=== PATIENT | male | born 1945 ===

== ENCOUNTER → 2016-12-11 | Outpatient (CLI) | payer OTHER ==
[2016-12-11 13:32] LABS: ESTIMATED AVERAGE GLUCOSE 171 mg/dl; HA1C FLAG Normal (Normal)
[2016-12-11 13:45] LABS: ALT/SGPT 128 U/L (12-78); BLOOD UREA NITROGEN 17 mg/dl (7-18); BUN/CREATININE RATIO 25.8 (10-20); CALCIUM 9.5 mg/dl (8.5-10.1); CARBON DIOXIDE 24 mmol/L (21-32); CHLORIDE 102 mmol/L (98-107); CHOLESTEROL 171 mg/dl (0-200); CREATININE 0.67 mg/dl (0.60-1.40); GLUCOSE 202 mg/dl (70-99); POTASSIUM 4.3 mmol/L (3.5-5.1); SODIUM 139 mmol/L (136-145)
[2016-12-11 13:49] LABS: ALB/GLOB RATIO 1.2 (0.9-2); ALKALINE PHOSPHATASE 106 U/L (45-117); AST/SGOT 46 U/L (15-37); CHOLESTEROL/HDL RATIO 4.9; HDL CHOLESTEROL 35 mg/dl; LDL CHOLESTEROL CALCULATED 99 mg/dl; PROSTATE SPECIFIC ANTIGEN < 0.010 ng/ml (0.000-4.000); TRIGLYCERIDES 183 mg/dl (0-150); VERY LOW DENSITY LIPOPROT CALC 37 mg/dl
== END | disposition home or self-care (01) ==
LOC: C.LABMFLN 07:39
PROVIDERS: ATTEND Family Medicine
DX: E11.9 Type 2 diabetes mellitus without complications (principal); E78.00 Pure hypercholesterolemia, unspecified; R74.0 Nonspecific elevation of levels of transaminase and lactic acid dehydrogenase [LDH]; C61 Malignant neoplasm of prostate

== ENCOUNTER → 2017-06-19 | Outpatient (CLI) | payer OTHER ==
[2017-06-19 13:31] LABS: ESTIMATED AVERAGE GLUCOSE 146 mg/dl; HA1C FLAG Normal (Normal)
[2017-06-19 13:36] LABS: ALT/SGPT 98 U/L (12-78); AST/SGOT 42 U/L (15-37); BLOOD UREA NITROGEN 21 mg/dl (7-18); BUN/CREATININE RATIO 27.7 (10-20); CALCIUM 9.7 mg/dl (8.5-10.1); CARBON DIOXIDE 28 mmol/L (21-32); CHLORIDE 106 mmol/L (98-107); CHOLESTEROL 189 mg/dl (0-200); CREATININE 0.75 mg/dl (0.60-1.40); GLUCOSE 130 mg/dl (70-99); POTASSIUM 4.2 mmol/L (3.5-5.1); SODIUM 140 mmol/L (136-145)
[2017-06-19 13:41] LABS: ALB/GLOB RATIO 1.2 (0.9-2); ALKALINE PHOSPHATASE 68 U/L (45-117); CHOLESTEROL/HDL RATIO 5.3; HDL CHOLESTEROL 36 mg/dl; LDL CHOLESTEROL CALCULATED 124 mg/dl; PROSTATE SPECIFIC ANTIGEN < 0.010 ng/ml (0.000-4.000); TRIGLYCERIDES 147 mg/dl (0-150); VERY LOW DENSITY LIPOPROT CALC 29 mg/dl
[2017-06-19 13:55] LABS: RATIO 5.5 mcg/mg (0-30.0)
== END | disposition home or self-care (01) ==
LOC: C.LABMFLN 08:07
PROVIDERS: ATTEND Family Medicine
DX: E11.9 Type 2 diabetes mellitus without complications (principal); E78.00 Pure hypercholesterolemia, unspecified; I10 Essential (primary) hypertension; R74.0 Nonspecific elevation of levels of transaminase and lactic acid dehydrogenase [LDH]; C61 Malignant neoplasm of prostate

== ENCOUNTER → 2017-12-28 | Outpatient (CLI) | payer OTHER ==
[2017-12-28 13:22] LABS: HEMOGLOBIN A1C 8.4 % (4.5-5.6)
[2017-12-28 13:51] LABS: ALBUMIN 4.1 gm/dl (3.4-5.0); ALT/SGPT 135 U/L (12-78); BLOOD UREA NITROGEN 14 mg/dl (7-18); CALCIUM 9.6 mg/dl (8.5-10.1); CARBON DIOXIDE 25 mmol/L (21-32); CHOLESTEROL 204 mg/dl (0-200); CREATININE 0.84 mg/dl (0.60-1.40); GLUCOSE 195 mg/dl (70-99); LDL CHOLESTEROL CALCULATED 125 mg/dl; POTASSIUM 3.9 mmol/L (3.5-5.1); SODIUM 134 mmol/L (136-145)
[2017-12-28 14:02] LABS: ALKALINE PHOSPHATASE 76 U/L (45-117); AST/SGOT 88 U/L (15-37); TOTAL PROTEIN 7.9 gm/dl (6.4-8.2)
== END | disposition home or self-care (01) ==
LOC: C.LABMFLN 08:26
PROVIDERS: ATTEND Family Medicine
DX: E11.9 Type 2 diabetes mellitus without complications (principal); E78.00 Pure hypercholesterolemia, unspecified; R74.0 Nonspecific elevation of levels of transaminase and lactic acid dehydrogenase [LDH]; I10 Essential (primary) hypertension; R26.81 Unsteadiness on feet; G62.9 Polyneuropathy, unspecified

== ENCOUNTER → 2018-07-03 | Outpatient (CLI) | payer OTHER ==
--- NOTE | 2018-07-03 14:46 | DIAGNOSTIC IMAGING REPORT ---
GI SERIES W/AIR ROUTINE CLINICAL HISTORY: 72 years-old Male presenting with R68.81 Early [id number] Right upper quadrant abdominal tender. TECHNIQUE: A standard air contrast upper GI series was performed. Spot images of the esophagus and stomach were obtained in multiple obliquities both upright and prone. COMPARISON: Ultrasound performed the same day. FINDINGS: The patient swallowed barium without difficulty. The esophagus is structurally normal without evidence of intrinsic or extrinsic mass. The esophageal mucosal pattern is normal. No gastroesophageal reflux was elicited by having the patient perform the Valsalva maneuver. The gastroesophageal junction distends normally. The stomach is normal in configuration and demonstrates normal distensibility. No mass or ulceration is identified. There was no evidence of gastritis. The duodenal bulb and sweep are unremarkable. However, suggestion of thickening of the folds in the jejunum, nonspecific. Fluoroscopy dosage (mGy): Not available. Fluoroscopy time: 2.3 minutes. Number or time of fluoroscopic spot images: 21. IMPRESSION: 1. Normal esophagus and stomach. Questionable thickening of jejunal folds, nonspecific. 2. If there is clinical concern, consider contrast-enhanced CT of abdomen and pelvis. Electronically signed by: Santiago Bermudez M.D. 07/03/2018 2:44 PM Dictated Date/Time: 07/03/2018 2:43 PM
[2018-07-03 14:48] LABS: BASO % 0.3 %; BASO ABS # 0.03 K/uL (0-0.2); EOS % 0.3 %; EOS ABS # 0.03 K/uL (0-0.5); HEMATOCRIT 36.2 % (42-52); HEMOGLOBIN 12.4 g/dL (14.0-18.0); IG# 0.02 K/uL (0.00-0.02); LYMPH % 26.3 %; LYMPH ABS # 2.47 K/uL (1.2-3.4); MEAN CORPUSCULAR HEMOGLOBIN 32.5 pg (25-34); MEAN CORPUSCULAR HGB CONC 34.3 g/dl (32-36); MONO ABS # 1.41 K/uL (0.11-0.59); NEUT % 57.9 %; NEUT ABS # 5.44 K/uL (1.4-6.5); PLATELET COUNT 366 K/uL (130-400); RED CELL DISTRIBUTION WIDTH CV 12.1 % (11.5-14.5); RED CELL DISTRIBUTION WIDTH SD 41.8 fL (36.4-46.3)
--- NOTE | 2018-07-03 14:50 | DIAGNOSTIC IMAGING REPORT ---
ULTRASOUND RIGHT UPPER QUADRANT ABDOMEN CLINICAL HISTORY: Early satiety. Right upper quadrant abdominal pain. COMPARISON STUDY: No priors. TECHNIQUE: Real-time, grayscale, and color flow sonography of the right upper quadrant of the abdomen was performed. Images are reviewed in the transverse and longitudinal planes. FINDINGS: Liver: The liver is enlarged and demonstrates heterogeneously increased echotexture consistent with hepatic steatosis. Note that this degrades acoustic penetration of the liver. Fatty sparing is noted adjacent to gallbladder fossa. There is no intrahepatic biliary ductal dilatation. The main portal vein is patent. Gallbladder: The gallbladder is distended and contains biliary sludge. No shadowing gallstones are identified. There is no gallbladder wall thickening or pericholecystic fluid. A sonographic Jerome's sign is reportedly absent. The common bile duct measures up to 0.5 cm in diameter. Pancreas: Not well visualized due to overlying bowel gas. Right kidney: Survey images of the right kidney demonstrate normal size and echotexture. There is no hydronephrosis. A 2.8 cm cyst is noted in the interpolar right kidney. Ascites: None. IMPRESSION: 1. Biliary sludge is noted. There are no shadowing gallstones identified and there is no sonographic evidence of acute cholecystitis. 2. Hepatomegaly and hepatic steatosis. Electronically signed by: Cole Neff M.D. 07/03/2018 2:52 PM Dictated Date/Time: 07/03/2018 2:47 PM
[2018-07-03 15:32] LABS: ALBUMIN 3.3 gm/dl (3.4-5.0); ALKALINE PHOSPHATASE 77 U/L (45-117); ALT/SGPT 53 U/L (12-78); AST/SGOT 35 U/L (15-37); BLOOD UREA NITROGEN 23 mg/dl (7-18); CALCIUM 9.5 mg/dl (8.5-10.1); CARBON DIOXIDE 25 mmol/L (21-32); CREATININE 0.96 mg/dl (0.60-1.40); GLUCOSE 90 mg/dl (70-99); LIPASE 198 U/L (73-393); POTASSIUM 3.6 mmol/L (3.5-5.1); SODIUM 132 mmol/L (136-145)
== END | disposition home or self-care (01) ==
LOC: C.ULTR 12:52
PROVIDERS: ATTEND Family Medicine
DX: K83.9 Disease of biliary tract, unspecified (principal); K76.0 Fatty (change of) liver, not elsewhere classified; R68.81 Early satiety; R11.2 Nausea with vomiting, unspecified; R82.90 Unspecified abnormal findings in urine

== ENCOUNTER 2022-03-30 08:36 | Inpatient (IN) ==
--- NOTE | 2022-02-27 09:28 | PAT Medication Instructions ---
Medication Instructions Date of Service February 27, 2022 Home Medications Medication Instructions Recorded nitroglycerin 0.4 mg sublingual 0.4 mg SUBLINGUAL Q5M PRN #25 tab 09/07/20 tablet blood-glucose meter (OneTouch #1 ea 09/17/20 Verio Meter) glimepiride 4 mg tablet 4 mg PO BID #180 tab 03/30/21 blood sugar diagnostic (OneTouch #200 ea 07/04/21 Verio test strips) Novafine Plus 0.23/0.25x4 mm #200 ea 08/16/21 lancets 30 gauge (OneTouch Delica #100 ea 08/25/21 Lancets) omeprazole 40 mg capsule,delayed 40 mg PO QAM #90 cap 09/20/21 release metformin 1,000 mg tablet 1,000 mg PO BID #180 tab 01/09/22 insulin NPH isoph U-100 human 100 See Rx Instructions SUBCUT DAILY 01/11/22 unit/mL (3 mL) subcutaneous pen #120 ml (Novolin N Flexpen) aspirin 81 mg tablet,delayed release 81 mg PO QAM polyethylene glycol 3350 17 gram/dose oral powder (Miralax) 17 gm PO DAILY PRN nitroglycerin 0.4 mg sublingual tablet 0.4 mg SUBLINGUAL Q5M PRN glimepiride 4 mg tablet 4 mg PO BID omeprazole 40 mg capsule,delayed release 40 mg PO QAM metformin 1,000 mg tablet 1,000 mg PO BID insulin NPH isoph U-100 human 100 unit/mL (3 mL) subcutaneous pen (Novolin N Flexpen) See Rx Instructions SUBCUT BID losartan 100 mg tablet 100 mg PO QAM Continue as directed nitroglycerin 0.4 mg sublingual tablet 0.4 mg SUBLINGUAL Q5M PRN (if needed) ASK your prescriber and surgeon aspirin 81 mg tablet,delayed release 81 mg PO QAM DO NOT take the morning of surgery polyethylene glycol 3350 17 gram/dose oral powder (Miralax) 17 gm PO DAILY PRN glimepiride 4 mg tablet 4 mg PO BID metformin 1,000 mg tablet 1,000 mg PO BID insulin NPH isoph U-100 human 100 unit/mL (3 mL) subcutaneous pen (Novolin N Flexpen) See Rx Instructions SUBCUT BID losartan 100 mg tablet 100 mg PO QAM Take morning of surgery With a small sip of water, OTHERWISE NOTHING TO EAT OR DRINK AFTER MIDNIGHT: omeprazole 40 mg capsule,delayed release 40 mg PO QAM Take evening before surgery polyethylene glycol 3350 17 gram/dose oral powder (Miralax) 17 gm PO DAILY PRN (if needed) glimepiride 4 mg tablet 4 mg PO BID metformin 1,000 mg tablet 1,000 mg PO BID insulin NPH isoph U-100 human 100 unit/mL (3 mL) subcutaneous pen (Novolin N Flexpen) See Rx Instructions SUBCUT BID Other Notes If you have any questions please call us at [phone] or [phone] or [phone] or [phone]
--- NOTE | 2022-02-28 09:53 | Anesthesiology Consultation ---
Date of Service February 28, 2022 Assessment & Plan (1) Encounter for pre-operative examination: Chart Review Chart Review: Acceptable Risk for Surgery (pending surgeon ordered PCP clearance scheduled 02/28/22 and preop Covid testing results ) and Patient seen in Pre Admission Testing - Awaiting PCP clearance scheduled 02/28/22 - Check BSG AM DOS Per PAT appt on 02/28/22, patient denies any recent travel or large group activ ities. No known Covid positive exposures or Covid related symptoms. No known Covid infection in the past 90 days. Pt is vaccinated for Covid. Preop Covid testing scheduled 03/28/22 = will await results. Educated on importance of self quarantining, social distancing and wearing mask in public for the patient one week prior to surgery and after Covid testing done Teaching & Discussion Pre-Anesthesia Teaching/Discussion Notes: Instructed NPO after midnight before surgery,except medications with 15 cc of water. Medication instructions provided according to the PAT guidelines. History Surgery Operation Date: 03/30/22 11:00 Proposed Procedures p Left Reversed Total Shoulder Arthroplasty - Martín Mclaughlin MD Height/Weight Height: 5 ft 10 in Weight: 90.2 kg Allergies Allergy/AdvReac Type Severity Reaction Status Date / Time codeine Allergy Intermediate Rash, Verified 02/28/22 13:34 nervous and sweaty Rlpwonl-EKW-ArM Reductase Allergy Intermediate Muscle Pain Verified 02/28/22 13:34 Inhibitor [Dttnove-Njs-Yju Reductase Inhibitor] Medications Home Medications Medication Instructions Recorded Confirmed Last Taken aspirin 81 mg tablet,delayed 81 mg PO QAM 04/18/19 02/28/22 05/25/21 release polyethylene glycol 3350 17 17 gm PO DAILY PRN 12/18/19 02/28/22 05/25/21 gram/dose oral powder (Miralax) nitroglycerin 0.4 mg sublingual 0.4 mg SUBLINGUAL Q5M PRN #25 tab 09/07/20 02/28/22 Unknown tablet blood-glucose meter (OneTouch #1 ea 09/17/20 02/28/22 Unknown Verio Meter) glimepiride 4 mg tablet 4 mg PO BID #180 tab 03/30/21 02/28/22 05/25/21 blood sugar diagnostic (OneTouch #200 ea 07/04/21 02/28/22 Unknown Verio test strips) Novafine Plus 0.23/0.25x4 mm #200 ea 08/16/21 02/28/22 Unknown lancets 30 gauge (OneTouch Delica #100 ea 08/25/21 02/28/22 Unknown Lancets) omeprazole 40 mg capsule,delayed 40 mg PO QAM #90 cap 09/20/21 02/28/22 Unknown release metformin 1,000 mg tablet 1,000 mg PO BID #180 tab 01/09/22 02/28/22 Unknown insulin NPH isoph U-100 human 100 See Rx Instructions SUBCUT DAILY 01/11/22 02/28/22 Unknown unit/mL (3 mL) subcutaneous pen #120 ml (Novolin N Flexpen) losartan 100 mg tablet 100 mg PO QAM 02/23/22 02/28/22 Unknown Past Medical History Medical History (Updated 02/28/22 @ 15:24 by Tere Herr PA-C) Benign essential hypertension BPPV (benign paroxysmal positional vertigo) Ongoing x years- most recently improved with slow transitions from laying to sitting to standing Hx of syncope in the past - specifics of work up unknown per patient - follows currently on with PCP- no issues recently DM type 2 (diabetes mellitus, type 2) Fasting glucose usually 110s Elevated liver function tests Chronic x years PCP monitoring No hx of hepaitits or cirrhosis AST 106 and ALT 137 in Dec 2021 GERD (gastroesophageal reflux disease) Controlled and stable History of prostate cancer Around 2014 S/p prostatectomy - no chemo or XRT Hypercholesteremia Neuropathy Initially in feet- has seemed to improved Exercise / Class Metabolic Activity II 4-5 Yardwork/Stairs/Walk up hill (one flight of stairs - no chest pain or SOB ) Past Family History Family History Father Family history of diabetes mellitus Hypertension Mother Liver cancer Other No family history of adverse response to anesthesia Past Surgical History Surgical History History of cardiac cath [facility] - [facility] [place] - CP - no stents/angioplasty History of cataract surgery RT/LEFT History of colonoscopy History of esophagogastroduodenoscopy (EGD) History of radical prostatectomy History of tooth extraction History of vitrectomy RT Past Anesthesia History No Hx of Anesthesia Complications and No Family Hx of Anesthesia Complications History of PONV No Hx of PONV and No Hx of Motion Sickness Social History Smoking Status: Never smoker Do You Dip or Chew Tobacco: No Hx Alcohol Use: No Hx Substance Use: No substance use type: does not use Review of Systems Patient denies chest pain, shortness of breath, dyspnea on exertion, cough, wheezing, palpitations. No hx of seizures, stroke, MD, apnea/snoring. No hx of blood clots or blood transfusions Physical Exam Vital Signs VITALS BP 150/74 P 76 TEMP 97.5 SP02 96% RESP 16 Constitutional no acute distress ENMT Mouth: no TMJ clicking Thyromental Distance: < 3.5 Finger Breadths (3.0) Mallampati Class: III Missing molars Neck + limited neck extension (significant ) Respiratory normal respiratory effort; no respiratory distress Auscultation: lungs clear to auscultation bilaterally; no wheezes Cardiovascular Rate/Rhythm: regular rate and regular rhythm Heart Sounds: no murmur Vessels: no carotid bruit Musculoskeletal Spine: no pain with cervical ROM Extremities: extremities normal to inspection Psychiatric Orientation: alert Lab Results Anesthesia Preop Results Results Anesthesia Widget: WBC 7.04 K/uL (4.8-10.8) 02/28/22 Hgb 14.1 g/dL (14.0-18.0) 02/28/22 Hct 41.3 % (42-52) L 02/28/22 Plt 214 K/uL (130-400) 02/28/22 Na 138 mmol/L (136-145) 02/28/22 K 4.2 mmol/L (3.5-5.1) 02/28/22 Cl 104 mmol/L (98-107) 02/28/22 CO2 25 mmol/L (21-32) 02/28/22 BUN 17 mg/dl (6-23) 02/28/22 Creat 0.81 mg/dl (0.6-1.4) 02/28/22 Glucose Level 129 mg/dl (70-99(Fasting)) H 02/28/22 PT 11.7 Seconds (9.0-12.0) 02/28/22 PTT 26.9 Seconds (21.0-31.0) 02/28/22 INR 1.1 (0.9-1.1) 02/28/22 HA1c 7.2 % (4.5-5.6) H 02/28/22 Urine Color Yellow 02/28/22 Urine Appearance Clear (Clear) 02/28/22 Urine pH 5.5 (4.5-7.5) 02/28/22 Urine Specific Rozel 1.019 (1.000-1.030) 02/28/22 Urine Protein Negative (Negative) 02/28/22 Urine Glucose (UA) Negative (Negative) 02/28/22 Urine Ketones Negative (Negative) 02/28/22 Urine Blood Negative (Negative) 02/28/22 Urine Nitrite Negative (Negative) 02/28/22 Urine Bilirubin Negative (Negative) 02/28/22 Urine Urobilinogen Negative (Negative) 02/28/22 Urine Leukocyte Esterase Negative (Negative) 02/28/22 Blood Type O Positive 02/28/22 Antibody Screen NEGATIVE 02/28/22 Testing Electrocardiogram Date:08/18/21 Findings:+ NSR @ (78bpm) Minimal voltage criteria for LVH, may be normal variant Chest X-Ray Date: 02/28/22 Findings: + NAD Stress Test Date:09/20/20 Type:exercise (Echo) Resting EF:60-65% Resting LV Function:normal Resting RWMA:+ none Valvular Disease:no significant valvular disease Negative stress echo and exercise EKG for ischemia at 100% MPHR. 7 METS achieved. Appropriate BP response. No arrhythmia. Study terminated due to fatigue/dyspnea. No chest pain reported. Poor exercise tolerance. Mild concentric LVH. Aortic root mildly dilated. Type I diastolic dysfunction. Mild MD.
--- NOTE | 2022-02-28 10:05 | PAT Medication Instructions ---
Medication Instructions Date of Service February 28, 2022 Home Medications Medication Instructions Recorded nitroglycerin 0.4 mg sublingual 0.4 mg SUBLINGUAL Q5M PRN #25 tab 09/07/20 [facility] Verio Meter) glimepiride 4 mg tablet 4 mg PO BID #180 tab 03/30/21 blood sugar diagnostic ([facility] 07[facility]04/21 Verio test strips) Novafine Plus 0.23/0.25x4 mm #200 ea 08/16/21 lancets 30 gauge ([facility] ea 08/25/21 Lancets) omeprazole 40 mg capsule,delayed 40 mg PO QAM #90 cap 09/20/21 release metformin 1,000 mg tablet 1,000 mg PO BID #180 tab 01/09/22 insulin NPH isoph U-100 human 100 See Rx Instructions SUBCUT DAILY 01/11/22 unit/mL (3 mL) subcutaneous pen #120 ml (Novolin N Flexpen) aspirin 81 mg tablet,delayed release 81 mg PO QAM polyethylene glycol 3350 17 gram/dose oral powder (Miralax) 17 gm PO DAILY PRN nitroglycerin 0.4 mg sublingual tablet 0.4 mg SUBLINGUAL Q5M PRN glimepiride 4 mg tablet 4 mg PO BID omeprazole 40 mg capsule,delayed release 40 mg PO QAM metformin 1,000 mg tablet 1,000 mg PO BID insulin NPH isoph U-100 human 100 unit/mL (3 mL) subcutaneous pen (Novolin N Flexpen) See Rx Instructions SUBCUT DAILY losartan 100 mg tablet 100 mg PO QAM Continue as directed aspirin 81 mg tablet,delayed release 81 mg PO QAM (unless surgeon directed otherwise) nitroglycerin 0.4 mg sublingual tablet 0.4 mg SUBLINGUAL Q5M PRN (if needed) DO NOT take the morning of surgery polyethylene glycol 3350 17 gram/dose oral powder (Miralax) 17 gm PO DAILY PRN glimepiride 4 mg tablet 4 mg PO BID metformin 1,000 mg tablet 1,000 mg PO BID losartan 100 mg tablet 100 mg PO QAM Take morning of surgery With a small sip of water, OTHERWISE NOTHING TO EAT OR DRINK AFTER MIDNIGHT: omeprazole 40 mg capsule,delayed release 40 mg PO QAM Take evening before surgery polyethylene glycol 3350 17 gram/dose oral powder (Miralax) 17 gm PO DAILY PRN (if needed) glimepiride 4 mg tablet 4 mg PO BID metformin 1,000 mg tablet 1,000 mg PO BID insulin NPH isoph U-100 human 100 unit/mL (3 mL) subcutaneous pen (Novolin N Flexpen) (take usual 62 units) Insulin Dependent Diabetic Patients * Test your blood sugar the morning of surgery * If Blood Sugar is GREATER THAN 150, take HALF of your regular dose of: insulin NPH isoph U-100 human 100 unit/mL (3 mL) subcutaneous pen (Novolin N Flexpen) (take 35 units) * If Blood Sugar is LESS THAN 150, DO NOT TAKE ANY: insulin NPH isoph U-100 human 100 unit/mL (3 mL) subcutaneous pen (Novolin N Flexpen) Other Notes If you have any questions please call us at [phone] or [phone] or [phone] or [phone]
--- NOTE | 2022-03-28 16:28 | History & Physical Report ---
Date of Service March 28, 2022 Assessment & Plan (1) Rotator cuff arthropathy of left shoulder: Plan: Treatment options discussed with the patient. He has failed conservative measures. He would like to proceed with surgical intervention. Risks, benefits and alternatives to surgery including but not limited to infection, DVT, pain, stiffness, need for revision surgery, damage to blood vessels, damage to nerves, PE, , were discussed with the patient and they wish to proceed. Plan on left reverse total shoulder arthroplasty scheduled for [facility] with Dr. Mclaughlin on 03/30/22. All questions answered. Patient will follow up post op. History of Present Illness Chief Complaint: Left shoulder pain Primary Care Provider: Cole Barraza MD 76 year old male with PMHx significant for HTN, GERD, Prostate Ca, DM2 who presents with ongoing left shoulder pain. Patient has pain interfering with his daily activities. He has failed conservative measures. He would like to proceed with surgical intervention. Patient denies headaches, sweats, fevers, chills, double vision, blurred vision, cough, sore throat, dysphagia, chest pain, sob, wheezing, n/v/d/c, numbness, tingling, fatigue, urinary symptoms, mood disorders. ROS positive for left shoulder pain and stiffness. Allergies Allergy/AdvReac Type Severity Reaction Status Date / Time codeine Allergy Intermediate Rash, Verified 02/28/22 13:34 nervous and sweaty Zugahuz-KOM-XrI Reductase Allergy Intermediate Muscle Pain Verified 02/28/22 13:34 Inhibitor [Vleakrx-Add-Cim Reductase Inhibitor] Home Medications Medication Instructions Recorded Confirmed Type aspirin 81 mg tablet,delayed 81 mg PO QAM 04/18/19 02/28/22 History release polyethylene glycol 3350 17 17 gm PO DAILY PRN 12/18/19 02/28/22 History gram/dose oral powder (Miralax) nitroglycerin 0.4 mg sublingual 0.4 mg SUBLINGUAL Q5M PRN #25 tab 09/07/20 02/28/22 Rx tablet blood-glucose meter (OneTouch #1 ea 09/17/20 02/28/22 Rx Verio Meter) blood sugar diagnostic (OneTouch #200 ea 07/04/21 02/28/22 Rx Verio test strips) Novafine Plus 0.23/0.25x4 mm #200 ea 08/16/21 02/28/22 Rx lancets 30 gauge (OneTouch Delica #100 ea 08/25/21 02/28/22 Rx Lancets) omeprazole 40 mg capsule,delayed 40 mg PO QAM #90 cap 09/20/21 02/28/22 Rx release metformin 1,000 mg tablet 1,000 mg PO BID #180 tab 01/09/22 02/28/22 Rx insulin NPH isoph U-100 human 100 See Rx Instructions SUBCUT DAILY 01/11/22 02/28/22 Rx unit/mL (3 mL) subcutaneous pen #120 ml (Novolin N Flexpen) losartan 100 mg tablet 100 mg PO QAM 02/23/22 02/28/22 History glimepiride 4 mg tablet 4 mg PO BID #180 tab 03/06/22 Rx Past Med/Surg History Medical History (Updated 03/28/22 @ 16:25 by Milton Ron PA-C) Benign essential hypertension BPPV (benign paroxysmal positional vertigo) Ongoing x years- most recently improved with slow transitions from laying to sitting to standing Hx of syncope in the past - specifics of work up unknown per patient - follows currently on with PCP- no issues recently DM type 2 (diabetes mellitus, type 2) Fasting glucose usually 110s Elevated liver function tests Chronic x years PCP monitoring No hx of hepaitits or cirrhosis AST 106 and ALT 137 in Dec 2021 GERD (gastroesophageal reflux disease) Controlled and stable History of prostate cancer Around 2014 S/p prostatectomy - no chemo or XRT Hypercholesteremia Neuropathy Initially in feet- has seemed to improved Surgical History History of cardiac cath [facility] [place] - no stents/angioplasty History of cataract surgery RT/LEFT History of colonoscopy History of esophagogastroduodenoscopy (EGD) History of radical prostatectomy History of tooth extraction History of vitrectomy RT Family History Father Family history of diabetes mellitus Hypertension Mother Liver cancer Other No family history of adverse response to anesthesia Social History Smoking Status: Never smoker Second Hand Exposure: No; Hx Alcohol Use: No Hx Substance Use: No Preferred Language: Tunisian Communication Ability: Effective 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 Beliefs That Will Affect Care: None Current Living Situation: Spouse current occupational status: retired Feels Safe at Home: Yes Seatbelt Use: always Assistive Devices: Glasses Review of Systems All systems reviewed & are unremarkable except as noted in HPI & below Physical Exam Constitutional: well developed and well nourished; no acute distress Eyes: PERRL, conjunctivae normal, anicteric sclerae ENMT: external ear and nose normal, oropharynx normal Neck: trachea midline, no thyromegaly Respiratory: normal respiratory effort, lungs clear to auscultation Cardiovascular: RRR, no murmur, no edema Musculoskeletal: Left shoulder: Tenderness anterolateral acromion. Positive impingement signs, positive Cross body and O'demetria's. Painful impingement arc. Pain with resistive strength testing. FF to 170 degrees, abduction to 170 degrees, ER to 75 degrees. Skin: no rashes, warm and dry Neurologic: patellar DTR's 2+ bilat, sensation intact Psychiatric: A+Ox3, euthymic affect Results & Data ([facility]) Diagnostic Findings Left shoulder: X-rays of his left shoulder demonstrate that he has no fracture or dislocation. There is some mild proximal migration of the humerus that would be concerning for a rotator cuff tear. There are some degenerative changes in the greater tuberosity, which would be concerning for rotator cuff tendinopathy. He does have a type III acromion and hypertrophic AC joint that would cause subacromial impingement with advanced AC joint osteoarthritis. The glenohumeral joint is maintained at this point. MRI demonstrates massive rotator cuff tear with marked atrophy of the supraspinatus muscle belly with positive tension sign and retraction with tear over 5 cm. There is superior wear on the humeral head with articular thinning and some possible early acetabular rotation of the acromion.
[~2022-03-30 08:36] MED LIST: ACETAMINOPHEN 500 MG TAB PO SCH; BUPIVACAINE 0.5 % 5 MG/1 ML PF 10ML VIAL ONE; CeleBREX 200 MG CAP PO SCH; FAMOTIDINE 20 MG TAB PO SCH; GABAPENTIN 300 MG CAP PO SCH; LR 15ML/HR IV SCH; METOCLOPRAMIDE HCL 10 MG TABLET PO SCH; MIDAZOLAM HCL 1 MG/ML 2ML VIAL ONE; TRANEXAMIC ACID 1,000 MG **IV Intra-op IV SCH; TRANEXAMIC ACID 1,000 MG **IV Pre-op IV SCH; ceFAZolin 2000MG 2,000 MG/15 ML SYR IV SCH; fentaNYL citrate 100 MCG/2 ML VIAL ONE
--- NOTE | 2022-03-30 09:12 | History & Physical Bridge Note ---
Date of Service March 30, 2022 History & Physical Bridge Note I have examined the patient, reviewed the History & Physical and in the interval since the performance of the History & Physical I have noted the following changes of clinical significance: no changes noted
[2022-03-30] MEDS ORDERED: ePHEDrine sulfate 50 MG/ML AMP IV PRN (10:19)
[2022-03-30] MEDS ORDERED: ONDANSETRON INJ 2 MG/ML 2 ML VIAL IV PRN ×2 (10:19→14:51)
[2022-03-30] MEDS ORDERED: ATROPINE SULFATE 0.1 MG/ML 10ML SYR IV PRN (10:19)
[2022-03-30] MEDS ORDERED: fentaNYL citrate 100 MCG/2 ML VIAL IV PRN (10:19)
[2022-03-30] MEDS ORDERED: LIDOCAINE 2% 2 ML VIAL/AMP(20MG/ML) INFIL ONE (10:56)
[2022-03-30] MEDS ORDERED: DEXAMETHASONE SOD INJ 4 MG/ML VIAL ONE (12:06)
[2022-03-30] MEDS ORDERED: ONDANSETRON INJ 2 MG/ML 2 ML VIAL ONE (12:06)
[2022-03-30] MEDS ORDERED: ROCURONIUM BROMIDE 10 MG/ML 5 ML VIAL IV ONE ×3 (12:06→13:36)
--- NOTE | 2022-03-30 13:42 | Operative Report ---
Post Operative Report Pre & Post Diagnosis Operation Date: 03/30/22 11:15 Pre-Op Diagnosis: Left Shoulder chronic irreparable rotator cuff tear with early rotator cuff arthropathy Post-Op Diagnosis: Left Shoulder chronic irreparable rotator cuff tear with early rotator cuff arthropathy, biceps tendinopathy. I identified the patient and participated in the time-out.: Yes Procedure Operation Date: 03/30/22 11:15 Actual Procedures p Left Reversed Total Shoulder Arthroplasty, biceps tenodesis - Martín Mclaughlin MD Surgeon Martín Mclaughlin MD Freight Caller Jose Luis WOLF Estimated Blood Loss 100 Findings Consistent with Post-Op Diagnosis Specimens Humeral head cut Drains 2 Hemovac Anesthesia Type General Regional Complications none Disposition Disposition: Recovery Room Indications 76-year-old male with left shoulder pain with x-rays that demonstrate type III acromion with hypertrophic AC joint osteoarthritis and MRI demonstrating a large retracted rotator cuff tear to the glenoid level with atrophy not felt to be repairable with signs of early rotator cuff arthropathy. Description of Procedure The patient was taken to the operating room and anesthetized under regional block and general anesthetic. The patient was positioned on the operating table in a 30 beach chair position with a towel roll under the medial border of the left scapula. The arm was draped free to be able to manipulate the shoulder as needed. The left upper extremity was prepped and draped in usual sterile fashion. Exam demonstrated 140 degrees forward flexion 90 degrees abduction 45 degrees external rotation and internal rotation to 80 degrees with subacromial crepitation. An anterior deltopectoral approach was performed. A longitudinal incision was made in the deltopectoral interval. The skin was incised sharply. Subcutaneous flaps were elevated off the fascia. The cephalic vein was dissected out and retracted lateral with the deltoid. The clavipectoral fascia was divided at the lateral margin of the conjoined tendon and extended up to the CA ligament. The following findings were noted: The subscapularis tendon was intact. There was thickened subacromial bursitis. There was a few strands of supraspinatus rotator cuff intact adjacent to the subscapularis. There was a large retracted supraspinatus tendon tear extending back to the anterior aspect of the infraspinatus which also has some tearing. Teres minor was intact. There was some tendinopathy and fraying of the edge of the tendon. Intra-articular biceps tendon demonstrated widening and tendinopathy. The upper centimeter of the pectoralis was released for inferior exposure. A self-retaining retractor was placed. The biceps tendon was tenodesed to the pectoralis tendon with #2 FiberWire. The proximal biceps was resected. The subscapular muscle fibers were split longitudinally at the level of the circumflex vessels. The circumflex vessels were identified and tied off with silk ties and divided laterally. A Kitner elevator was used to free up the inferior fibers of the subscapularis off of the capsule. The axillary nerve was identified with a tug test and protected with a blunt George retractor between the nerve and the capsule. The subscapularis tendon was then taken down off of the lesser tuberosity subperiosteally, a Vicryl traction suture was placed and a subperiosteal dissection was performed along the neck of the humerus as the arm was gradually externally rotated exposing the humeral head. The humeral head findings demonstrated exposed bone adjacent to the rotator cuff tear in the area of the torn rotator cuff footprint area. There was indentation in the superior head and some superior articular wear consistent with proximal migration and impingement. Central inferior aspect of the humeral head was normal and the glenoid was normal. Retractors were readjusted and the inferior osteophytes were all resected using an artist chisel. A Aguilera elevator was used to assist in releasing the capsule of the neck of the humerus. The capsule was divided with Felix scissors down to the glenoid released off the anterior glenoid and the rotator interval was released to meet the capsular release and a 360 release of the subscapularis was accomplished. A Fukuda retractor was placed into the joint retracting the humeral head posterior. The labrum and biceps tendon was resected. an anterior-inferior and posterior inferior capsular release were performed with electrocautery and a Aguilera elevator on bone with the axillary nerve protected inferiorly by the retractor. Attention was then taken to the humeral preparation. The cutting guide was placed into the humeral head. It was positioned at 20 of retroversion. Oscillating saw was used to resect the humeral head giving the cut above the level of the posterior rotator cuff insertion site. The humerus was then prepared for the stem. I used the ascend flex stem from [employer]. The sizing broaches were used followed by trial broaches up to a size 6 which had the appropriate fit and fill. This was followed by the stem broaches which demonstrated significant tightness at size 4 because of the hard metaphyseal proximal bone and I chose to stay with a size 4 instead of advancing up to mitigate risk of humerus fracture. The appropriate sized cut protector was placed. The humerus was then retracted posterior to the glenoid. The glenoid was sized for a 25 mm baseplate. The guide for the baseplate was positioned in a 10 inferior tilt and the central drill hole was made. The reamer for the 25 baseplate was used. The central drill was widened for the peg. The Tornier 25 mm hydroxyapatite-coated baseplate was impacted into position. The base plate was transfixed with superior and inferior locking screws and anterior and posterior compression screws with stable fixation. The fan reamer was used for the 36 millimeter glenoid sphere. After irrigation the 36 mm +2 offset glenoid sphere was impacted onto the baseplate and the security screw was tightened. Attention was taken back to the humerus. The cut protector was removed and the +0 high offset humeral tray trial was assembled to the trial stem rotated appropriately to get bony coverage and then screwed in position. A trial reduction was performed. A +6 reversed trial insert demo nstrated good stability and no shuck. The trials were removed. 3 drill holes are made into the harder bone in the bicipital groove area and 3 #5 FiberWire sutures were placed transosseously. The canal was irrigated with antibiotic solution with bacitracin. The final component was assembled. The final component was ascend flex PTC size 4B long stem with plus or high offset tray and +6,36 reversed insert. This was then impacted into the humerus with a tight press-fit. It was reduced to the glenoid sphere. Stability was verified. Subscapularis was repaired with the #5 FiberWire sutures using Kev-Forrest suture technique. The pectoralis was repaired with #2 FiberWire [id number] sutures reinforcing the biceps tendon tenodesis. The arm was taken through a range of motion which demonstrated 150 degrees flexion 100 Breze abduction 60 degrees external rotation, internal rotation to 80 degrees without tension on repair The implant was stable through the range of motion tested. The wound was copiously irrigated. 2 Hemovac drains were placed. The deltopectoral interval was closed with [id number] #1 Vicryl sutures. The subcutaneous tissues were closed with 2-0 Vicryl sutures. The skin was closed with mary. Sterile dressings were applied and a shoulder immobilizer. Jose Luis WOLF, my physician butcher's assistant acted as heel sprayer first throughout the procedure .He performed functions including patient positioning, arm positioning, prepping and draping, soft tissue retraction, instrument management, suture management and performed the subcutaneous and skin closure and will participate in the postoperative care of the patient. I attest to the content of the Intraoperative Record and any orders documented therein. Any exceptions are noted below.
[2022-03-30] MEDS ORDERED: fentaNYL citrate 100 MCG/2 ML VIAL ONE (13:43)
--- NOTE | 2022-03-30 14:21 | XRay Report ---
XR shoulder LT min 2V routine CLINICAL HISTORY: Post shoulder surgery COMPARISON STUDY: None. FINDINGS: 3 views of the left shoulder demonstrate a reverse left total shoulder arthroplasty. The roy rdware is intact. Skin mary are in place. No fracture or dislocation. IMPRESSION: Status post reverse left total shoulder arthroplasty. No evidence for hardware complicat ion. ACT 112: Negative or not required by law. Electronically signed by: Kendrick Montana M.D. 03/30/2022 2:20 PM
--- NOTE | 2022-03-30 14:32 | Anesthesiology Progress Note ---
Date of Service March 30, 2022 Anesthesia Post Procedure Vital Signs Vital Signs: Temp Pulse Pulse Resp BP Pulse Ox 03/30/22 14:25 97.3 F L 69 20 142/85 H 91 03/30/22 14:15 71 22 139/85 95 03/30/22 14:05 60 20 148/82 H 95 03/30/22 13:57 96.8 F L 61 18 129/74 96 03/30/22 09:12 97.9 F 85 21 161/86 H 94 Pain Intensity Left Shoulder: Pain Intensity: 4 Transfer of Care Handoff Completed per policy Notes Mental Status: alert / awake / arousable and participated in evaluation Patient Amnestic to Procedure: Yes Nausea / Vomiting: adequately controlled Pain: adequately controlled Airway Patency, RR, SpO2: stable & adequate BP & HR: stable & adequate Hydration State: stable & adequate Anesthetic Complications: no major complications apparent and Pt Satisfied with anesthetic care
[2022-03-30] MEDS ORDERED: NALOXONE HCL 0.4 MG/1 ML VIAL/CARP IV PRN (14:51)
[2022-03-30] MEDS ORDERED: bisacodyL 10 MG SUPP PR PRN (14:51)
[2022-03-30] MEDS ORDERED: PHARMACY GLYCEMIC MGMT CONSULT PRN (14:51)
[2022-03-30] MEDS ORDERED: POLYETHYLENE (MIRALAX) 17 GM PACK PO PRN (14:51)
[2022-03-30] MEDS ORDERED: METOCLOPRAMIDE HCL INJ 5 MG/ML 2 ML VIAL IV PRN (14:51)
[2022-03-30] MEDS ORDERED: TAMSULOSIN HCL 0.4 MG CAP PO PRN ×2 (14:51→15:22)
[2022-03-30] MEDS ORDERED: HYDROmorphone INJ 0.5 MG/0.5 ML SYR IV PRN (14:51)
[2022-03-30] MEDS ORDERED: MAGNESIUM HYDROXIDE SUSP 30 ML UDC PO PRN (14:51)
[2022-03-30] MEDS ORDERED: NITROGLYCERIN SL 0.4 MG/TAB TAB SL PRN (14:51)
[2022-03-30] MEDS ORDERED: GLUCOSE 10 TABS/TUBE PO PRN (15:18)
[2022-03-30] MEDS ORDERED: DEXTROSE 50% 50 ML SYRINGE IV PRN (15:18)
[2022-03-30] MEDS ORDERED: GLUCAGON FOR INJ 1 MG VIAL SQ PRN (15:18)
[2022-03-30] MEDS ORDERED: GLUCOSE 40% GEL 15 GM TUBE PO PRN (15:18)
[2022-03-30] MEDS ORDERED: CARBOHYDRATES FOR HYPOGLYCEMIA PO PRN (15:18)
--- NOTE | 2022-03-30 15:26 | Pharmacy Report ---
Pharmacy Glycemic Short Note 2 - Date of Service March 30, 2022 - Glycemic Short BSG Results (Last 24 hours): 03/30/22 03/30/22 09:12 14:00 POC Glucose 253 H 188 H OUTPATIENT ANTIDIABETIC REGIMEN: * NPH 70 units Q AM + 62 units Q HS * Glimepiride 4mg PO BID * Metformin 1gm PO BID * A1c 7.2% 02/28/22 ASSESSMENT: * Reasonable well controlled type 2 diabetic admitted for L shoulder arthroplasty biceps tenodesis * It appears he may have received dexamethasone IV in the OR today based upon anesthesia charging * Last BSG in 180s * Med rec states patient too NPH this AM however did not record the number of units given * Will initiate basal/bolus SQ regimen using Lantus + Novolog. Lantus is preferred in the inpatient setting due to uncertain PO intake and greater potential for "peak" to produce hypoglycemia. Initial insulin doses will be based upon outpatient total daily insulin dose and mild-moderate stress level. PLAN FOR INPATIENT GLYCEMIC CONTROL: * Hold outpatient oral diabetes medications * Basal insulin * Lantus 30 units SQ BID * Bolus insulin * NovoLog per scale ACHS and at 0000 + 0400 * Goal Range: Low 110 mg/dL - High 140 mg/dL * Correction Factor: 12 mg/dL/unit * Nutritional / Prandial insulin per carb ratio of 1 unit per 4 grams CHO consumed
[2022-03-30] MEDS: SODIUM CHLORIDE 0.9% 1000ML 1,000 ML IV SCH (15:31)
[2022-03-30] MEDS: ACETAMINOPHEN 500 MG TAB PO SCH ×2 (15:39→22:09)
[2022-03-30] MEDS: INSULIN ASPART PER UNIT SC SCH ×2 (16:46→20:57)
[2022-03-30] MEDS: INSULIN GLARGINE SOLOSTAR 100 UNITS/ML 3 ML PEN SC SCH ×2 (16:47→20:39)
[2022-03-30] MEDS: ceFAZolin 2000MG 2,000 MG/15 ML SYR IV SCH (20:36)
[2022-03-30] MEDS: DOCUSATE SODIUM 100 MG CAP PO SCH (20:37)
[2022-03-30] MEDS ORDERED: INSULIN GLARGINE SOLOSTAR 100 UNITS/ML 3 ML PEN SC SCH (21:00)
[2022-03-30] MEDS ORDERED: SENNA 8.6 MG TAB PO SCH (21:00)
[2022-03-31] MEDS: INSULIN ASPART PER UNIT SC SCH ×3 (00:30→08:31)
[2022-03-31] MEDS: SODIUM CHLORIDE 0.9% 1000ML 1,000 ML IV SCH (02:32)
[2022-03-31] MEDS: ceFAZolin 2000MG 2,000 MG/15 ML SYR IV SCH (04:28)
[2022-03-31] MEDS: ACETAMINOPHEN 500 MG TAB PO SCH (04:49)
[2022-03-31 07:24] LABS: Basophils # (auto) 0.01 K/uL (0-0.2); Basophils % (auto) 0.1 %; Eosinophils # (auto) 0.01 K/uL (0-0.5); Eosinophils % (auto) 0.1 %; Hematocrit (blood only) 34.8 % (42-52); Hemoglobin 11.9 g/dL (14.0-18.0); Immature Granulocytes # (auto) 0.02 K/uL (0.00-0.02); Immature Granulocytes % (auto) 0.2 %; Lymphocytes # (auto) 2.32 K/uL (1.2-3.4); Lymphocytes % (auto) 23.1 %; Mean Corpuscular Hgb Conc 34.2 g/dL (32-36); Mean Corpuscular Volume 99.4 fL (80-100); Mean Platelet Volume 10.5 fL (7.4-10.4); Monocytes # (auto) 0.93 K/uL (0.11-0.59); Monocytes % (auto) 9.3 %; Neutrophils # (auto) 6.75 K/uL (1.4-6.5); Neutrophils % (auto) 67.2 %; Platelet Count 178 K/uL (130-400); RDW Coefficient of Variation 12.4 % (11.5-14.5); RDW Standard Deviation 44.9 fL (36.4-46.3); White Blood Count 10.04 K/uL (4.8-10.8)
[2022-03-31] MEDS: DOCUSATE SODIUM 100 MG CAP PO SCH (07:30)
[2022-03-31 07:43] LABS: BUN Creatinine Ratio 18.9 (10-20); Calcium 9.3 mg/dl (8.5-10.1); Creatinine Clr Calc Pharmacy 94.6 ml/min; Est GFR (African American) 103.1 ml/min; Potassium 3.8 mmol/L (3.5-5.1)
--- NOTE | 2022-03-31 07:44 | Orthopedic Progress Note ---
Date of Service March 31, 2022 Assessment & Plan (1) Rotator cuff arthropathy of left shoulder: Plan: Postop day #1 left reverse total shoulder arthroplasty -PT/OT: No formal therapy for 6 weeks. No shoulder motion. May do wrist, elbow, hand motion, shrugs, pendulums -DVT prophylaxis: SCDs, aspirin 81 mg -Pain management as written -AM labs: Hemoglobin 11.9 from 14 preop. Acute blood loss anemia likely due to surgical loss versus dilutional effect -Discharge planning: Plan on discharge home today after therapy. Admission and Anticipated Discharge Date Admission Date: March 30, 2022 Subjective Postop day 1 right reverse total shoulder. Patient is doing well this morning. Pain is well controlled. No other complaints. Denies chest pain, shortness of breath, fever/chills, nausea/vomiting/diarrhea. Review of Systems Review of Systems: All systems reviewed & are unremarkable except as noted in Subjective Physical Exam Physical Exam: Left shoulder: Dressing is clean, dry, intact. Sling in place. Hemovac intact. Fingers are mobile with good skilled trades teacher strength. Distally neurovascular status and sensation intact. Constitutional: WD/WN, vitals as above Results & Data ([facility]) Vital Signs (Past 12 Hours) Vital Signs Temp Pulse Resp BP Pulse Ox 03/31/22 07:03 36.5 C 91 H 16 152/80 H 94 03/31/22 03:48 36.6 C 94 H 16 136/74 92 03/30/22 23:32 36.7 C 97 H 16 127/73 95 03/30/22 19:45 36.4 C L 107 H 16 138/76 92
[2022-03-31] MEDS: oxyCODONE HCL IR 5 MG TAB (IMMEDIATE RELEASE) PO PRN ×2 (08:30→09:44)
[2022-03-31] MEDS ORDERED: LOSARTAN POTASSIUM 50 MG TAB PO SCH (09:00)
[2022-03-31] MEDS ORDERED: PANTOprazole 40 MG TAB PO SCH (09:00)
[2022-03-31] MEDS ORDERED: ASPIRIN 81 MG ECTAB PO SCH (09:00)
[2022-03-31] MEDS ORDERED: MULTIVITAMIN TAB PO SCH (09:00)
[2022-03-31] MEDS: INSULIN GLARGINE SOLOSTAR 100 UNITS/ML 3 ML PEN SC SCH (10:57)
--- NOTE | 2022-04-03 16:21 | Discharge Summary ---
Date of Service April 03, 2022 Admission HPI Per Admitting Provider 76 year old male with PMHx significant for HTN, GERD, Prostate Ca, DM2 who presents with ongoing left shoulder pain. Patient has pain interfering with his daily activities. He has failed conservative measures. He would like to proceed with surgical intervention. Patient denies headaches, sweats, fevers, chills, double vision, blurred vision, cough, sore throat, dysphagia, chest pain, sob, wheezing, n/v/d/c, numbness, tingling, fatigue, urinary symptoms, mood disorders. ROS positive for left shoulder pain and stiffness. Admission Exam Per Admitting Provider Constitutional: well developed and well nourished; no acute distress Eyes: PERRL, conjunctivae normal, anicteric sclerae ENMT: external ear and nose normal, oropharynx normal Neck: trachea midline, no thyromegaly Respiratory: normal respiratory effort, lungs clear to auscultation Cardiovascular: RRR, no murmur, no edema Musculoskeletal: Left shoulder: Tenderness anterolateral acromion. Positive impingement signs, positive Cross body and O'demetria's. Painful impingement arc. Pain with resistive strength testing. FF to 170 degrees, abduction to 170 degrees, ER to 75 degrees. Skin: no rashes, warm and dry Neurologic: patellar DTR's 2+ bilat, sensation intact Psychiatric: A+Ox3, euthymic affect Principal Diagnosis Left shoulder rotator cuff arthropathy Discharge Exam Left shoulder: Dressing is clean, dry, intact. Sling in place. Hemovac intact. Fingers are mobile with good fence repairman strength. Distally neurovascular status and sensation intact. Constitutional WD/WN, vitals as above well developed and well nourished; no acute distress Discharge Data Allergies Allergy/AdvReac Type Severity Reaction Status Date / Time codeine Allergy Intermediate Rash, Verified 03/30/22 09:09 nervous and sweaty Znngvfw-[id number]-[id number] Reductase Allergy Intermediate Muscle Pain Verified 03/30/22 09:09 Inhibitor [Dchfurw-Oyk-Cqe Reductase Inhibitor] Consultations 03/28/22 14:43 Consult Hospitalist Routine Procedures Performed Operation Date: 03/30/22 11:15 Actual Procedures p Left Reversed Total Shoulder Arthroplasty(Left) - Martín Mclaughlin MD Ordered Studies 03/30/22 05:00 US - OR guided needle placemen Routine Hospital Course (1) Rotator cuff arthropathy of left shoulder: Postop day #1 left reverse total shoulder arthroplasty -PT/OT: No formal therapy for 6 weeks. No shoulder motion. May do wrist, elbow, hand motion, shrugs, pendulums -DVT prophylaxis: SCDs, aspirin 81 mg -Pain management as written -AM labs: Hemoglobin 11.9 from 14 preop. Acute blood loss anemia likely due to surgical loss versus dilutional effect -Discharge planning: Plan on discharge home today after therapy. Lab Results 03/30/22 03/30/22 03/30/22 Range/Units 08:53 09:12 14:00 WBC (4.8-10.8) K/uL RBC (4.7-6.1) M/uL Hgb (14.0-18.0) g/dL Hct (42-52) % MCV (80-100) fL MCH (25-34) pg MCHC (32-36) g/dL RDW Std Deviation (36.4-46.3) fL RDW Coeff of Leodan (11.5-14.5) % Plt Count (130-400) K/uL MPV (7.4-10.4) fL Immature Gran % (Auto) % Neut % (Auto) % Lymph % (Auto) % [place] % (Auto) % Eos % (Auto) % Baso % (Auto) % Neut # (Auto) (1.4-6.5) K/uL Lymph # (Auto) (1.2-3.4) K/uL [place] # (Auto) (0.11-0.59) K/uL Eos # (Auto) (0-0.5) K/uL Baso # (Auto) (0-0.2) K/uL Immature Gran # (Auto) (0.00-0.02) K/uL Sodium (136-145) mmol/L Potassium (3.5-5.1) mmol/L Chloride (98-107) mmol/L Carbon Dioxide (21-32) mmol/L Anion Gap (3-11) BUN (6-23) mg/dl Creatinine (0.6-1.4) mg/dl Est Cr Clr Drug Dosing ml/min Est GFR ( Amer) ml/min Est GFR (Non-Af Amer) ml/min BUN/Creatinine Ratio (10-20) Glucose (70-99(Fasting)) mg/dl POC Glucose 253 H 188 H (70-99) mg/dl Calcium (8.5-10.1) mg/dl SARS-CoV-2, RNA, NAAT NEGATIVE (NEGATIVE) 03/30/22 03/30/22 03/31/22 Range/Units 15:40 20:33 00:21 WBC (4.8-10.8) K/uL RBC (4.7-6.1) M/uL Hgb (14.0-18.0) g/dL Hct (42-52) % MCV (80-100) fL MCH (25-34) pg MCHC (32-36) g/dL RDW Std Deviation (36.4-46.3) fL RDW Coeff of Leodan (11.5-14.5) % Plt Count (130-400) K/uL MPV (7.4-10.4) fL Immature Gran % (Auto) % Neut % (Auto) % Lymph % (Auto) % [place] % (Auto) % Eos % (Auto) % Baso % (Auto) % Neut # (Auto) (1.4-6.5) K/uL Lymph # (Auto) (1.2-3.4) K/uL [place] # (Auto) (0.11-0.59) K/uL Eos # (Auto) (0-0.5) K/uL Baso # (Auto) (0-0.2) K/uL Immature Gran # (Auto) (0.00-0.02) K/uL Sodium (136-145) mmol/L Potassium (3.5-5.1) mmol/L Chloride (98-107) mmol/L Carbon Dioxide (21-32) mmol/L Anion Gap (3-11) BUN (6-23) mg/dl Creatinine (0.6-1.4) mg/dl Est Cr Clr Drug Dosing ml/min Est GFR ( Amer) ml/min Est GFR (Non-Af Amer) ml/min BUN/Creatinine Ratio (10-20) Glucose (70-99(Fasting)) mg/dl POC Glucose 254 H 279 H 245 H (70-99) mg/dl Calcium (8.5-10.1) mg/dl SARS-CoV-2, RNA, NAAT (NEGATIVE) 03/31/22 03/31/22 03/31/22 Range/Units 04:30 06:50 06:50 WBC 10.04 (4.8-10.8) K/uL RBC 3.50 L (4.7-6.1) M/uL Hgb 11.9 L (14.0-18.0) g/dL Hct 34.8 L (42-52) % MCV 99.4 (80-100) fL MCH 34.0 (25-34) pg MCHC 34.2 (32-36) g/dL RDW Std Deviation 44.9 (36.4-46.3) fL RDW Coeff of Leodan 12.4 (11.5-14.5) % Plt Count 178 (130-400) K/uL MPV 10.5 H (7.4-10.4) fL Immature Gran % (Auto) 0.2 % Neut % (Auto) 67.2 % Lymph % (Auto) 23.1 % [place] % (Auto) 9.3 % Eos % (Auto) 0.1 % Baso % (Auto) 0.1 % Neut # (Auto) 6.75 H (1.4-6.5) K/uL Lymph # (Auto) 2.32 (1.2-3.4) K/uL [place] # (Auto) 0.93 H (0.11-0.59) K/uL Eos # (Auto) 0.01 (0-0.5) K/uL Baso # (Auto) 0.01 (0-0.2) K/uL Immature Gran # (Auto) 0.02 (0.00-0.02) K/uL Sodium 134 L (136-145) mmol/L Potassium 3.8 (3.5-5.1) mmol/L Chloride 104 (98-107) mmol/L Carbon Dioxide 21 (21-32) mmol/L Anion Gap 9 (3-11) BUN 14 (6-23) mg/dl Creatinine 0.74 (0.6-1.4) mg/dl Est Cr Clr Drug Dosing 94.6 ml/min Est GFR ( Amer) 103.1 ml/min Est GFR (Non-Af Amer) 89.0 ml/min BUN/Creatinine Ratio 18.9 (10-20) Glucose 167 H (70-99(Fasting)) mg/dl POC Glucose 194 H (70-99) mg/dl Calcium 9.3 (8.5-10.1) mg/dl SARS-CoV-2, RNA, NAAT (NEGATIVE) 03/31/22 Range/Units 08:08 WBC (4.8-10.8) K/uL RBC (4.7-6.1) M/uL Hgb (14.0-18.0) g/dL Hct (42-52) % MCV (80-100) fL MCH (25-34) pg MCHC (32-36) g/dL RDW Std Deviation (36.4-46.3) fL RDW Coeff of Leodan (11.5-14.5) % Plt Count (130-400) K/uL MPV (7.4-10.4) fL Immature Gran % (Auto) % Neut % (Auto) % Lymph % (Auto) % [place] % (Auto) % Eos % (Auto) % Baso % (Auto) % Neut # (Auto) (1.4-6.5) K/uL Lymph # (Auto) (1.2-3.4) K/uL [place] # (Auto) (0.11-0.59) K/uL Eos # (Auto) (0-0.5) K/uL Baso # (Auto) (0-0.2) K/uL Immature Gran # (Auto) (0.00-0.02) K/uL Sodium (136-145) mmol/L Potassium (3.5-5.1) mmol/L Chloride (98-107) mmol/L Carbon Dioxide (21-32) mmol/L Anion Gap (3-11) BUN (6-23) mg/dl Creatinine (0.6-1.4) mg/dl Est Cr Clr Drug Dosing ml/min Est GFR ( Amer) ml/min Est GFR (Non-Af Amer) ml/min BUN/Creatinine Ratio (10-20) Glucose (70-99(Fasting)) mg/dl POC Glucose 186 H (70-99) mg/dl Calcium (8.5-10.1) mg/dl SARS-CoV-2, RNA, NAAT (NEGATIVE) Total Time Total Time Spent Total Time Spent (In Minutes): 20 Discharge Plan Discharge Items Patient Disposition: Home - Self-Care Reason For Visit: Left Shoulder Arthropathy Discharge Diagnosis: Left rotator cuff arthropathy Activity: Per Instructions section Non-emergency contact: Surgeon Call non-emergency contact if: you have any medication questions, your pain is not controlled, you have a fever, your temperature is above 101, your wound has increased redness and your wound has increased drainage Follow-up/Referrals: Cole Barraza MD [Primary Care Provider] - 04/07/22 11:30 am Diet: Regular Addtl Attending Provider Instructions: ACTIVITY RECOMMENDATIONS: SELF CARE INSTRUCTIONS AFTER TOTAL SHOULDER ARTHROPLASTY REVERSE A. You may do daily exercises as taught in physical therapy while in hospital. No lifting with the operative arm. B. You are to wear your sling/immobilizer at all times EXCEPT when performing your daily exercises and for hygiene purposes. C. You may perform dry, daily dressing changes. Please keep your incision covered. You may shower 48 hours after surgery. Do not apply soap or any ointment /lotions directly over incision. Do not soak incision in bath tub/swimming pool. D. You may use ice as needed to operative shoulder. SPECIAL CARE INSTRUCTIONS: VERY IMPORTANT TO READ AND REVIEW A. There are a few signs you need to watch for after you are home. Call [facility] at [phone] if you experience any of the followin. Increased severe shoulder pain. Some pain is expected especially when you exercise. 2. Increased swelling in you shoulder or arm; pain or swelling in either upper extremity. 3. Any fluid drainage from the incision. 4. Shortness of breath or chest pain. B. Please call [facility] at [phone] if you have any questions or concerns about your operation or recovery. C. Call your physician if: 1. Temperature is greater than 101 degrees (F). 2. Pain is not relieved by prescribed pain medications. 3. Increase drainage or redness from incision. 4. Unanswered questions or concerns. FOLLOW UP VISIT: Please call [facility] at [phone] to schedule a follow up appointment with Dr. Mclaughlin or his PA in 12-14 days from your surgery date. Stand-Alone Forms: My adRise, Smoking Cessation Medications and DC Order Prescriptions: New acetaminophen [Tylenol Extra Strength] 500 mg Tablet 1,000 mg PO Q8 Qty: 60 RF: 0 oxycodone 5 mg Tablet 5 - 10 mg PO .Q4h-6h MDD 6 PRN (Reason: pain) Qty: 30 RF: 0 Continued (DME) blood-glucose meter [OneTouch Verio Meter] Misc See Rx Instructions .ROUTE .MEDSUPPLY Qty: 1 RF: 0 (DME) OneTouch Verio test strips Strip See Dose Instructions .ROUTE .MEDSUPPLY Qty: 200 RF: 3 (DME) Novafine Plus 0.23/0.25x4 mm See Rx Instructions .Route .MEDSUPPLY Qty: 200 RF: 11 (DME) lancets [OneTouch Delica Lancets] 30 gauge misc See Rx Instructions .ROUTE .MEDSUPPLY Qty: 100 RF: 3 omeprazole 40 mg capsule,delayed release(DR/EC) 40 mg PO QAM Qty: 90 RF: 3 metformin 1,000 mg tablet 1,000 mg PO BID Qty: 180 RF: 3 glimepiride 4 mg tablet 4 mg PO BID Qty: 180 RF: 3 Novolin N Flexpen 100 unit/mL (3 mL) insulin pen See Rx Instructions subcut DAILY Qty: 120 RF: 3 nitroglycerin 0.4 mg tablet, sublingual 0.4 mg sublingual Q5M PRN (Reason: chest pain) Qty: 25 RF: 0 aspirin 81 mg Tablet,Delayed Release (Dr/Ec) 81 mg PO QAM RF: 0 polyethylene glycol 3350 [Miralax] 17 gram/dose powder 17 gm PO DAILY PRN (Reason: Constipation) RF: 0 losartan 100 mg tablet 100 mg PO QAM RF: 0 Discharge Orders: Discharge Order (Routine); Ordered 03/31/22 Ordered By: Milton Gates/Other Patient Handouts: DVT Post Op Prevention, Healthy Meals for Diabetes, Understanding Carbohydrates, Shoulder Arthroscopy, Diabetes Carbs Fats Protein Admission Data Admit Date/Time: 03/30/22 13:58 Attending Provider: Martín Mclaughlin Admit Provider: Martín Mclaughlin Primary Care Provider: Cole Barraza Other Providers: Prosper Liang Other Interventions: Discharge Summary Assessment (RN) Last Done: 03/31/22 08:36
== END 2022-03-31 11:42 | disposition home or self-care (01) | DRG 483 ==
LOC: ASU 08:36 → 3E 08:36 → OBSVTOIN 13:58